=== PATIENT | female | born 1990 | race American Indian/Alaskan Native ===

== ENCOUNTER 2017-11-04 23:25 | Inpatient (IN) | payer OTHER ==
[2017-11-05] MEDS ORDERED: LACTATED RINGERS 1,000 ML ONE (00:15)
[2017-11-05] MEDS ORDERED: SUBLIMAZE IV PRN (01:21)
[2017-11-05] MEDS ORDERED: BRETHINE IVP PRN (01:21)
[2017-11-05] MEDS ORDERED: STADOL IV PRN (01:21)
[2017-11-05] MEDS ORDERED: ePHEDrine SULFATE IV PRN (01:21)
[2017-11-05] MEDS ORDERED: POLYCILLIN/NS 2 GM/100 ML 2 GM/100 ML BAG IV ONE ×2 (01:21)
[2017-11-05] MEDS ORDERED: MINERAL OIL PO PRN (01:21)
[2017-11-05] MEDS ORDERED: XYLOCAINE 2% INFILTRATI ONE (01:21)
[2017-11-05] MEDS ORDERED: BRETHINE SUB-Q PRN (01:21)
[2017-11-05] MEDS ORDERED: SUBLIMAZE ONE (01:27)
[2017-11-05] MEDS ORDERED: PITOCin/NS 30 UNIT/500ML 30 UNITS/500 ML BAG IV SCH (02:00)
[2017-11-05] MEDS ORDERED: PITOCin/NS 20 UNIT/1000ML DRIP 20 UNITS/1,000 ML BAG IV SCH ×2 (02:00→10:00)
[2017-11-05] MEDS ORDERED: LACTATED RINGERS 1,000 ML IV SCH (02:00)
[2017-11-05 02:06] LABS: Mean Corpuscular HGB Conc 33 % (30-34); Platelet Count 229 K/mm3 (140-440); Red Blood Count 4.77 M/mm3 (3.65-5.03); Red Cell Distribution Width 16.1 % (13.2-15.2)
[2017-11-05 02:07] LABS: Mean Corpuscular Hemoglobin 23 pg (28-32); Mean Corpuscular Volume 69 fl (79-97)
--- NOTE | 2017-11-05 02:38 | History and Physical Report ---
History of Present Illness Date of examination: 11/05/17 Date of admission: 11/04/17 23:37 Chief complaint: Leaking fluid, contractions History of present illness: 27yo G 2 P 0 0 1 0 here with c/o leaking clear fluid and contractions since 22: 00. Positive nitrazine test in Triage. She reports positive movements but denies vaginal bleeding. She is a [employer] patient. Her course was complicated by vit D deficiency and anemia. She was on supplementation. GBS is positive. Past History Past Medical History: no pertinent history Past Surgical History: other (Elective ) Family/Genetic History: none Social history: , lives with family, full code - Obstetrical History Expected Date of Delivery: 11/10/17 Actual Gestation: 39 Week(s) 2 Day(s) : 2 Para: 0 Hx # Term Pregnancies: 0 Number of Pregnancies: 0 Spontaneous Abortions: 0 Induced : 1 Number of Living Children: 0 Medications and Allergies Allergies Allergy/AdvReac Type Severity Reaction Status Date / Time No Known Allergies Allergy Verified 11/05/17 01:21 Active Meds: Active Medications Butorphanol Tartrate (Stadol) 2 mg IV Q2H PRN PRN Reason: Pain , Severe (7-10) Ephedrine Sulfate (Ephedrine Sulfate) 10 mg IV Q2M PRN PRN Reason: Hypotension Fentanyl (Sublimaze) 100 mcg IV Q2H PRN PRN Reason: Labor Pain Lactated Ringer's (Lactated Ringers) 1,000 mls @ 125 mls/hr IV DIRECT AYLIN Oxytocin/Sodium Chloride (Pitocin/Ns 20 Unit/1000ml Drip) 20 units in 1,000 mls @ 125 mls/hr IV DIRECT AYLIN Oxytocin/Sodium Chloride (Pitocin/Ns 30 Unit/500ml) 30 units in 500 mls @ 0 mls /hr IV TITR AYLIN; Protocol Mineral Oil (Mineral Oil) 30 ml PO QHS PRN PRN Reason: Constipation Terbutaline Sulfate (Brethine) 0.25 mg SUB-Q ONCE PRN PRN Reason: Hyperstimulation/Hypertonicity Terbutaline Sulfate (Brethine) 0.25 mg IVP ONCE PRN PRN Reason: Hyperstimulation/Hypertonicity Review of Systems All systems: negative - Vital Signs Vital signs: Vital Signs Pulse BP 90 128/70 11/04/17 23:59 11/04/17 23:59 Temp Pulse Resp BP Pulse Ox 98.1 F 83 20 114/75 11/05/17 00:15 11/05/17 01:19 11/05/17 00:15 11/05/17 01:19 - Physical Exam Cardiovascular: Regular rate Lungs: Positive: Normal air movement Abdomen: Positive: normal appearance, soft Genitourinary (Female): Positive: normal external genitalia, normal perenium Vagina: Positive: normal moisture - Obstetrical FHR: auscultation normal, category 1 FHR comments: baseline 140, moderate variability, 15x15 accels, no decels Uterine Contraction Monitor Mode: External Cervical Dilatation: 4 (per RN) Cervical Effacement Percentage: 80 (per RN) station: -2 (per RN) Uterine Contraction Pattern: Regular Results Result Diagrams: 11/05/17 00:30 Abnormal lab results 11/05/17 Range/Units 00:30 MCV 69 L (79-97) fl MCH 23 L (28-32) pg RDW 16.1 H (13.2-15.2) % All other labs normal. Assessment and Plan - Patient Problems (1) 39 weeks gestation of Current Visit: Yes Status: Acute (2) Spontaneous rupture of amniotic membranes Current Visit: Yes Status: Acute Plan to address problem: Admit to L&D with routine labor orders Start Oxytocin for labor augmentation, if indicated Anticipate vaginal delivery (3) Positive GBS test Current Visit: Yes Status: Acute Plan to address problem: Start Ampicillin 2 gm IV loading dose then 1 gm IV q4h until delivery
[2017-11-05] MEDS ORDERED: AMPICILLIN/NS 1 GM/50 ML 1 GM/50 ML BAG IV SCH (06:00)
[2017-11-05] MEDS ORDERED: METHERGINE IM ONE ×2 (08:53→08:58)
--- NOTE | 2017-11-05 09:14 | Procedure Note ---
OB Delivery Note - Delivery Date of Delivery: 11/05/17 Surgeon: SAVITA VANESSA Estimated blood loss: other (400cc) - Vaginal Delivery presentation: vertex Delivery position: OA Intrapartum events: mult.variable deceleratio, shoulder dystocia (Less than 30 sec ) Delivery monitor: external FHT, external uterine Route of delivery: Indicators for instrumentation: nonreassuring FHR tracing Delivery placenta: spontaneous Delivery cord: 3 umbilical vessels Delivery laceration: 3rd degree Delivery repair: vicryl Anesthesia: local Delivery comments: Patient with multiple variable decels. On exam, caput at +2 station. Kiwi applied and pulled x 1 with POP off. Good descent was noted. On re-applying the kiwi, however, application failed due to lubrication. Plan was to re-apply kiwi after wiping off lubrication. Tracing however became reassuring and patients pushing improved. We then encountered a shoulder dystocia on delivery. This was relieved with Luana and delivery of the posterior ARM after trial of suprapubic pushing was ineffective. Duration was less than 30 secs - Infant A at 1 minute: 6 at 5 minutes: 8 Gender: Female (Time of delivery was 08:42 AM, weight was 8 lbs 3 oz or 3707 g)
[2017-11-05] MEDS ORDERED: ZOFRAN IV PRN (09:17)
[2017-11-05] MEDS ORDERED: MILK OF MAGNESIA PO PRN (09:17)
[2017-11-05] MEDS ORDERED: TUCKS PAD TP PRN ×2 (09:17→12:36)
[2017-11-05] MEDS ORDERED: PHENERGAN PR PRN (09:17)
[2017-11-05] MEDS ORDERED: PHENERGAN PO PRN (09:17)
[2017-11-05] MEDS ORDERED: TYLENOL PO PRN (09:17)
[2017-11-05] MEDS ORDERED: BENADRYL PO PRN (09:17)
[2017-11-05] MEDS ORDERED: LANSINOH TP PRN (09:17)
[2017-11-05] MEDS ORDERED: NORCO 5/325 PO PRN (09:17)
[2017-11-05] MEDS ORDERED: DULCOLAX PR PRN (09:17)
[2017-11-05] MEDS ORDERED: SENOKOT S PO SCH (10:00)
[2017-11-05] MEDS ORDERED: PRENATAL VITAMIN PO SCH (10:00)
[2017-11-05] MEDS ORDERED: SODIUM CHLORIDE FLUSH SYRINGE 10 ML IV NR (10:00)
[2017-11-05] MEDS ORDERED: DERMOPLAST TP ONE (12:30)
[2017-11-05] MEDS: COLACE PO SCH ×2 (13:14→22:01)
[2017-11-05] MEDS: FEOSOL PO SCH ×2 (13:15→22:01)
[2017-11-05] MEDS: MOTRIN PO SCH ×2 (13:16→22:01)
[2017-11-05 21:28] LABS: Hematocrit 26.4 % (30.3-42.9); Hemoglobin 8.6 gm/dl (10.1-14.3)
[2017-11-06] MEDS: MOTRIN PO SCH ×2 (04:47→16:35)
[2017-11-06] MEDS ORDERED: M-M-R II VACCINE SUB-Q ONE (09:17)
[2017-11-06] MEDS ORDERED: BOOSTRIX IM ONE (09:17)
[2017-11-06] MEDS ORDERED: DEPO-PROVERA (CONTRACEPTION) IM NR (11:00)
--- NOTE | 2017-11-06 11:04 | Progress Note ---
Assessment and Plan A: PP Day #1 Asymptomatic Anemia P: Follow Routine Orders FeSO4 PO BID; Continue at home D/c Home today per patient request Depo Provera 150mg IM x 1 dose RTO in One Week Subjective - Subjective Date of service: 11/06/17 Patient reports: appetite normal, voiding normally, pain well controlled, flatus , ambulating normally [place]: doing well Objective - Vital Signs Latest vital signs: Vital Signs Temp Pulse Resp BP BP Pulse Ox 11/06/17 01:55 98.4 F 105 H 20 97/58 99 11/05/17 19:55 98.2 F 78 20 107/61 100 11/05/17 16:05 98.2 F 78 20 93/60 11/05/17 13:16 20 11/05/17 11:40 98.9 F 73 20 106/71 Intake and Output 11/05/17 11/06/17 11/06/17 22:59 06:59 14:59 Intake Total 600 Output Total 900 Balance -300 Intake: Oral 240 Intake, Free Water 360 Output: Urine 900 Void 900 Other: Total, Intake Amount 240 Total, Output Amount 900 - Exam Breasts: Present: normal Cardiovascular: Present: Regular rate Lungs: Present: Clear to auscultation, Normal air movement Abdomen: Present: normal appearance, soft, normal bowel sounds Uterus: Present: normal, firm, fundal height below umbilicus Extremities: Present: normal - Labs Labs: Abnormal lab results 11/05/17 Range/Units 21:08 Hgb 8.6 L (10.1-14.3) gm/dl Hct 26.4 L D (30.3-42.9) %
[2017-11-06 11:05] VITALS: BP 99/54
--- NOTE | 2017-11-06 11:05 | Discharge Summary ---
Providers - Providers Date of Admission: 11/04/17 23:37 Date of discharge: 11/06/17 Attending physician: MEAGHAN COHEN MD Primary care physician: MEAGHAN COHEN MD Hospitalization Reason for admission: active labor Delivery: Episiotomy: none Laceration: 3rd degree Other procedures: none complications: none Discharge diagnosis: IUP at term delivered [place] baby: female Condition at discharge: Good Disposition: DC-01 TO HOME OR SELFCARE Plan - Discharge Medications Prescriptions: Ibuprofen [Motrin 600 MG tab] 600 mg PO Q8H PRN #30 tablet PRN Reason: Pain Multivitamin with Iron [Multivitamins with Iron] 1 each PO DAILY #30 tablet - Provider Discharge Summary Activity: routine, no sex for 6 weeks, no heavy lifting 4 weeks, no strenuous exercise Diet: routine Instructions: routine Additional instructions: [] Smoking cessation referral if applicable(refer to patient education folder for contact #) [] Refer to [facility] Call your doctor immediately for: * Fever > 100.5 * Heavy vaginal bleeding ( >1 pad per hour) * Severe persistent headache * Shortness of breath * Reddened, hot, painful area to leg or breast * Drainage or odor from incision. * Keep incision clean and dry at all times and follow doctor's instructions regarding bathing/showering - Follow up plan Follow up: MEAGHAN COHEN MD [Primary Care Provider] - 6 Weeks
[2017-11-06] MEDS: FEOSOL PO SCH (16:36)
== END 2017-11-06 18:00 | disposition home or self-care (01) | DRG 775 ==
LOC: TRG 23:25 → LD 23:37 → OB 11-05 12:13
PROVIDERS: ADMIT Obstetrics & Gynecology; ATTEND Obstetrics & Gynecology
PROC: 10E0XZZ Delivery of Products of Conception, External Approach (ICD-10-PCS; principal; 2017-11-05)
PROC: 0DQR0ZZ Repair Anal Sphincter, Open Approach (ICD-10-PCS; 2017-11-05)
PROC: 3E0234Z Introduction of Serum, Toxoid and Vaccine into Muscle, Percutaneous Approach (ICD-10-PCS; 2017-11-06)
DX: O66.0 Obstructed labor due to shoulder dystocia (principal); O70.20 Third degree perineal laceration during delivery, unspecified; O99.824 Streptococcus B carrier state complicating childbirth; O76 Abnormality in fetal heart rate and rhythm complicating labor and delivery; O99.03 Anemia complicating the puerperium; D64.9 Anemia, unspecified; Z37.0 Single live birth; Z23 Encounter for immunization; Z3A.39 39 weeks gestation of pregnancy
CPT/HCPCS: 36415; 85014; 85018; 85027; 86592; 86850; 86900; 86901; 99211; G0463; J0290; J0595; J2210; J2590; J3010; J7120